=== PATIENT | male | born 1965 | race American Indian/Alaskan Native ===

== ENCOUNTER 2016-10-13 19:04 | Emergency (ER) | payer OTHER ==
[2016-10-13] MEDS ORDERED: TYLENOL ONE (19:21)
[2016-10-13 19:54] VITALS: BP 146/93
[2016-10-13] MEDS ORDERED: TYLENOL PO ONE (19:54)
[2016-10-13] MEDS ORDERED: MOTRIN PO ONE (22:35)
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
--- NOTE | 2016-10-14 10:51 | XRay Report ---
RIGHT SHOULDER: Routine views demonstrate normal bony and soft tissue structures with normal joint alignment of the shoulder. IMPRESSION: Normal study.
== END 2016-10-14 00:40 | disposition home or self-care (01) ==
LOC: ED 19:04
DX: S46.811A Strain of other muscles, fascia and tendons at shoulder and upper arm level, right arm, initial encounter (principal); S43.401A Unspecified sprain of right shoulder joint, initial encounter; V49.49XA Driver injured in collision with other motor vehicles in traffic accident, initial encounter; Y93.9 Activity, unspecified; Y92.9 Unspecified place or not applicable; Y99.9 Unspecified external cause status
CPT/HCPCS: 99283